=== PATIENT | female | born 1990 | race Two or more races ===

== ENCOUNTER 2017-01-23 19:22 | Emergency (ER) | payer BC ==
[2017-01-23] MEDS ORDERED: LIDOCAINE 2% UROJECT 10 ML ONE (19:54)
[2017-01-23] MEDS ORDERED: CEFTRIAXONE SODIUM 250 MG VIAL ONE (20:24)
[2017-01-23] MEDS ORDERED: AZITHROMYCIN 250 MG TABLET ONE (20:25)
[2017-01-23 20:32] LABS: URINE BILIRUBIN NEGATIVE (NEGATIVE); URINE BLOOD 3+ (NEGATIVE); URINE GLUCOSE (UA) NEGATIVE (NEGATIVE); URINE LEUKOCYTE ESTERASE 2+ (NEGATIVE); URINE NITRITE NEGATIVE (NEGATIVE); URINE PROTEIN 1+ (NEGATIVE); URINE UROBILINOGEN NORMAL (0-1 mg/dl)
[2017-01-23 20:37] LABS: HCG,QUALITATIVE URINE NEGATIVE
[2017-01-23 20:42] LABS: URINE APPEARANCE CLOUDY; URINE COLOR YELLOW
[2017-01-23 20:57] LABS: URINE BACTERIA 2+; URINE EPITHELIAL CELLS 30-40 /hpf
== END 2017-01-23 20:59 | disposition home or self-care (01) ==
LOC: ED 19:22
DX: N76.5 Ulceration of vagina (principal); R30.0 Dysuria
CPT/HCPCS: 81025; 81001; 99283 ×2; 96372; J0696; A9270 ×2